=== PATIENT | male | born 1990 | race Two or more races ===

== ENCOUNTER 2025-01-27 12:29 | Emergency (ER) | payer BC ==
[~2025-01-27] VITALS: Ht 180.3 cm; Wt 86.2 kg
[2025-01-27 12:50] VITALS: TEMP 98.3
[2025-01-27] MEDS ORDERED: ONDANSETRON HCL/PF 4 MG/2 ML VIAL ONE (13:17)
[2025-01-27] MEDS: IV NS 0.9% 1,000 ML BAG IV ONE (13:21)
[2025-01-27] MEDS: ONDANSETRON HCL/PF - ER 4 MG/2 ML VIAL IV ONE (13:21)
[2025-01-27] MEDS ORDERED: MORPHINE SULFATE INJ 4 MG/ML DISP.SYRIN ONE (14:01)
[2025-01-27 14:02] LABS: PLATELET COUNT (AUTO) 197 K/uL (150-450); RED BLOOD CELL COUNT(AUTO) 5.37 MIL/uL (4.5-6.0); RED CELL DISTRIBUTION WIDTH 13.3 % (11.5-15.0); WHITE BLOOD COUNT (AUTO) 10.7 K/uL (4.3-11.0)
[2025-01-27] MEDS: MORPHINE SULFATE INJ 2 MG/ML DISP.SYRIN IV ONE (14:03)
[2025-01-27 14:14] LABS: ASPARTATE AMINOTRANSFERASE 20.0 U/L (15-37); CALCIUM, SERUM 9.2 mg/dL (8.5-10.1); CREATININE 1.7 mg/dL (0.6-1.3); SODIUM SERUM 142.0 mmol/L (136-145); TOTAL PROTEIN, SERUM 7.9 g/dL (6.4-8.2); UREA NITROGEN, BLOOD 19.0 mg/dL (7-18)
[2025-01-27 14:50] LABS: APPEARANCE,URINE CLEAR (CLEAR); BLOOD, URINE 3+ Ery/uL (NEGATIVE); LEUKOCYTE ESTERASE ,URINE NEGATIVE (NEGATIVE); NITRITE, URINE NEGATIVE (NEGATIVE); UGLUCOSE NEGATIVE (NEGATIVE)
[2025-01-27 14:54] LABS: ADD URINE CULTURE NO; SQUAMOUS EPITHELIAL CELL,UR None Seen /HPF (None Seen)
[2025-01-27] MEDS ORDERED: KETOROLAC TROMETHAMINE 15 MG/ML VIAL ONE (15:24)
[2025-01-27] MEDS: KETOROLAC TROMETHAMINE 15 MG/ML VIAL IV ONE (15:28)
[2025-01-27] MEDS ORDERED: TAMS-12 PO (16:17)
[2025-01-27] MEDS ORDERED: NAPR-1164 PO (16:17)
[2025-01-27 17:50] VITALS: BP 131/80; O2SAT 99
== END 2025-01-27 17:05 | disposition home or self-care (01) ==
LOC: ER 12:39
DX: N13.2 Hydronephrosis with renal and ureteral calculous obstruction (principal); R10.11 Right upper quadrant pain; R11.0 Nausea
CPT/HCPCS: 99285; 74176; 96374; 76705; 96375; 96361; 85025; 83690; 81001; 36415; 80053; J1885; J2270; J2405 ×2; J7030